=== PATIENT | male | born 1940 | race Caucasian/White ===

== ENCOUNTER 2016-08-18 14:25 | Inpatient (IN) | payer MEDICARE, BC ==
[~2016-08-18] VITALS: Ht 175.3 cm; Wt 81.6 kg
[2016-08-18] MEDS ORDERED: ASPI81TA31 PO (15:49)
[2016-08-18] MEDS ORDERED: MORP1SYR2 IV (15:49)
[2016-08-18] MEDS ORDERED: PANT40TA2 PO (15:49)
[2016-08-18] MEDS ORDERED: BRIM10DR6 LEFTEYE (15:49)
[2016-08-18] MEDS ORDERED: ONDA4VIA30 IVP (15:49)
[2016-08-18] MEDS ORDERED: RIVA20TA PO (15:49)
[2016-08-18] MEDS ORDERED: BLOO-668 IN (15:49)
[2016-08-18] MEDS ORDERED: MAGN400O6 PO (15:49)
[2016-08-18] MEDS ORDERED: ACET-2799 PO (15:49)
[2016-08-18] MEDS ORDERED: TRAZ-144 PO (15:49)
[2016-08-18] MEDS ORDERED: FLUO20CA36 PO (15:49)
[2016-08-18] MEDS ORDERED: MAG355OR18 PO (15:49)
[2016-08-18] MEDS ORDERED: IBUP-1955 PO (15:49)
[2016-08-18] MEDS ORDERED: TIMO5SOL11 LEFTEYE (15:49)
[2016-08-18] MEDS ORDERED: ZOLP5TAB8 PO (15:49)
[2016-08-18] MEDS ORDERED: INSU100V28 SQ (15:49)
[2016-08-18] MEDS ORDERED: BRIM5DRO3 OP (15:49)
[2016-08-18] MEDS ORDERED: AMLO10TA2 PO (15:49)
[2016-08-18] MEDS ORDERED: HYDR25TA4 PO (15:49)
[2016-08-18] MEDS ORDERED: RAMI10CA PO (15:49)
[2016-08-18] MEDS ORDERED: INSU100I19 SQ (15:49)
[2016-08-18] MEDS ORDERED: GABA-534 PO (15:49)
[2016-08-18] MEDS ORDERED: ATOR10TA PO (15:49)
[2016-08-18] MEDS ORDERED: MIRT30TA7 PO (15:49)
[2016-08-18] MEDS ORDERED: OXYCODONE HCL 5 MG TABLET PO PRN (17:30)
[2016-08-18 17:50] VITALS: BP 143/58
--- NOTE | 2016-08-18 19:30 | NUR ---
MED REC COMPLETED. RECEIVED PATIENT IN BED APPEARING IN NAD. LEFT HIP DRESSING CLEAN, DRY, AND INTACT. CSM ADEQUATE TO TOES. COMFORTABLE AT THIS TIME.REFUSING TO WEAR SCD'S AT THIS TIME. EDUCATED ON WHY HE SHOULD BE WEARING THEM, HOWEVER CONTINUES TO REFUSE TO WEAR THEM. INSTRUCTED TO CALL RN FOR ANY NEEDS OR REQUESTS, VERBALIZES GOOD UNDERSTANDING. CALL LIGHT WITHIN REACH AND BED ALARM ON AAT.
[2016-08-18] MEDS ORDERED: ZOLPIDEM 5 MG TABLET PO PRN (20:45)
[2016-08-18] MEDS ORDERED: ONDANSETRON 4 MG/2 ML VIAL IV PRN (20:45)
[2016-08-18] MEDS ORDERED: DEXTROSE 50% 50 ML DISP.SYRIN IV PRN (20:45)
[2016-08-18] MEDS ORDERED: BRIMONIDINE-P 0.1% OPHTH DROP 5 ML DROPS OP SCH (20:45)
[2016-08-18] MEDS ORDERED: MAGNESIUM HYDROXIDE 30 ML LIQUID UDC PO PRN (20:45)
[2016-08-18 20:47] VITALS: BP 140/61
[2016-08-18] MEDS ORDERED: Medication Not On Formulary EA (Mirtazapine 30 MG) PO SCH (21:00)
--- NOTE | 2016-08-18 22:00 | NUR ---
EVENING MEDS GIVEN LATE THEY WERE NOT AVAILABLE FROM PHARMACY UNTIL THEN
[2016-08-18] MEDS: OXYCODONE HCL 5 MG TABLET PO PRN (22:24)
[2016-08-18] MEDS: MIRTAZAPINE 15 MG TABLET PO SCH (22:24)
[2016-08-18] MEDS: TRAZODONE 50 MG TABLET PO SCH (22:24)
[2016-08-18] MEDS: ATORVASTATIN 10 MG TABLET PO SCH (22:24)
[2016-08-18] MEDS: BLOOD SUGAR DIAGNOSTIC 1 EACH STRIP VI SCH (22:30)
[2016-08-18] MEDS: INSULIN REGULAR, HUMAN 300 UNITS/3 ML VIAL SQ PRN (22:33)
[2016-08-19] MEDS: OXYCODONE HCL 5 MG TABLET PO PRN ×4 (03:06→20:33)
--- NOTE | 2016-08-19 06:15 | NUR ---
PATIENT SLEPT WELL WITH OXY PO GIVEN PRIOR TO SLEEP LAST NIGHT. REQUIRED REPEAT PAIN MED ABOUT 0300, WHERE HE SLEPT WELL THEREAFTER.LEFT HIP DRESSING CLEAN, DRY, AND INTACT.CSM ADEQUATE TO TOES. IN NAD AT PRESENT. RESTING IN BETWEEN ROUNDS.CALL LIGHT WITHIN REACH
[2016-08-19] MEDS: PANTOPRAZOLE SODIUM 40 MG TABLET.DR PO SCH ×2 (06:46→08:45)
[2016-08-19] MEDS: BLOOD SUGAR DIAGNOSTIC 1 EACH STRIP VI SCH ×4 (06:50→20:32)
[2016-08-19] MEDS ORDERED: PANTOPRAZOLE SODIUM 40 MG TABLET.DR PO SCH (07:30)
[2016-08-19 07:44] LABS: BASOPHILS % (AUTO) 0.3 % (0.0-2.0); EOSINOPHILS # (AUTO) 0.4 K/uL (0.0-0.7); EOSINOPHILS % (AUTO) 4.7 % (0.0-7.0); HEMOGLOBIN 8.7 G/DL (14.0-18.0); LYMPHOCYTES # (AUTO) 0.8 K/UL (0.8-4.8); MEAN CORPUSCULAR HEMOGLOBIN 28.4 UUG (27.0-31.0); MEAN CORPUSCULAR HGB CONC 34 g/dL (32.0-37.0); MEAN CORPUSCULAR VOLUME 84.9 FL (82.0-92.0); MONOCYTES # (AUTO) 0.9 K/UL (0.1-1.30); MONOCYTES % (AUTO) 8.9 % (0.0-11.0); NEUTROPHILS # (AUTO) 7.5 K/UL (1.8-8.9); NEUTROPHILS % (AUTO) 78.1 % (38.5-71.5); PLATELET COUNT (AUTO) 189 K/UL (150-450); RED BLOOD CELL COUNT(AUTO) 3.06 MIL/UL (4.7-6.1); WHITE BLOOD COUNT (AUTO) 9.6 K/UL (4.0-11.2)
[2016-08-19 08:19] LABS: CARBON DIOXIDE 30 mmol/L (21-32); CHLORIDE 99 mmol/L (98-107); CHOLESTEROL 99 mg/dL (<200); CREATININE 1.1 mg/dL (0.6-1.3); GLUCOSE 114 mg/dL (74-106); HDL CHOLESTEROL 30 mg/dL (40-60); PHOSPHOROUS 3.4 mg/dL (2.5-4.9); POTASSIUM 3.5 mmol/L (3.5-5.1); TRIGLYCERIDES 66 MG/DL (30-150); UREA NITROGEN, BLOOD 18 mg/dL (7-18)
[2016-08-19 08:21] VITALS: BP 165/69
[2016-08-19 08:22] VITALS: BP 146/80
[2016-08-19] MEDS: ASPIRIN 81 MG TAB.CHEW PO SCH (08:45)
[2016-08-19] MEDS: MAG HYDROX/AL HYDROX/SIMETH 30 ML LIQUID UDC PO PRN ×2 (08:46→15:22)
[2016-08-19] MEDS: GABAPENTIN 300 MG CAPSULE PO SCH ×3 (08:46→17:43)
[2016-08-19] MEDS: AMLODIPINE 10 MG TABLET PO SCH (08:46)
[2016-08-19] MEDS: FLUOXETINE HCL 20 MG CAPSULE PO SCH ×2 (08:46→17:44)
[2016-08-19] MEDS: RAMIPRIL 5 MG CAPSULE PO SCH (08:47)
[2016-08-19] MEDS: HYDROCHLOROTHIAZIDE 25 MG TABLET PO SCH (08:47)
[2016-08-19] MEDS ORDERED: BRIMONIDINE 0.2% OPHT DROP 10 ML BOTTLE LEFTEYE SCH (09:00)
[2016-08-19] MEDS ORDERED: TIMOLOL MALEATE XE 0.5% OPHT 5 ML BOTTLE LEFTEYE SCH (09:00)
[2016-08-19] MEDS ORDERED: BISACODYL 10 MG SUPP.RECT RC PRN (09:15)
[2016-08-19 09:31] LABS: EOSINOPHILS % (MANUAL) 2 % (0-8); LYMPHOCYTES % (MANUAL) 7 % (20-40); MONOCYTES % (MANUAL) 9 % (2-10); NEUTROPHILS % (MANUAL) 82 % (42-75)
[2016-08-19] MEDS ORDERED: BRIM5DRO2 OP (11:21)
[2016-08-19] MEDS: TIMOLOL MALEATE 0.5% OPHT DROP 5 ML BOTTLE LEFTEYE SCH ×2 (11:30→20:35)
[2016-08-19] MEDS ORDERED: HOME MED MISCELLANEOUS LEFTEYE SCH (11:30)
[2016-08-19] MEDS: BRIMONIDINE 0.2% OPHT DROP 10 ML BOTTLE LEFTEYE SCH ×2 (11:30→20:34)
[2016-08-19] MEDS: INSULIN REGULAR, HUMAN 300 UNIT/3 ML VIAL SQ PRN (12:05)
[2016-08-19] MEDS: INSULIN DETEMIR 300 UNIT/3 ML CARTRIDGE SQ SCH (12:11)
[2016-08-19] MEDS: MORPHINE SULFATE 2 MG/1 ML DISP.SYRIN IM PRN (12:56)
--- NOTE | 2016-08-19 17:07 | NUR ---
DAILY NOTE EVENING MR=[id number] HE REFUSED INSULIN AT THIS TIME WANTS TO WAIT FOR THE HS ACCU CHECK TO SEE IF THE LEVEMIR WILL BRING IT DOWN. BS FOR THE AFTERNOON 362 COVERED WITH 20U OF REGULAR INSULIN THEN DOWN TO 293 AFTER 2HRS AND NOW 206 FOR THE DINNER READING. HE IS NOT HAVING DINNER NOW SAYS HE WILL EAT LATER WHEN HIS FRIEND COMES AND HE WILL TAKE COVERAGE IF NEEDED FOR THE HS ACCUCHECK. A/O IN NO ACUTE DISTRESS
[2016-08-19] MEDS: RIVAROXABAN 10 MG TABLET PO SCH (17:43)
--- NOTE | 2016-08-19 18:10 | NUR ---
END OF SHIFT IN BED RESTING QUIETLY. IN NO ACUTE DISTRESS. MEDICATED FOR PAIN ORDERED. PERICARE GIVEN DIAPER CHANGED. REPOSITIONED IN BED. LG BM TODAY
[2016-08-19 20:00] VITALS: BP 145/65
[2016-08-19] MEDS: MIRTAZAPINE 15 MG TABLET PO SCH (20:33)
[2016-08-19] MEDS: ATORVASTATIN 10 MG TABLET PO SCH (20:33)
[2016-08-19] MEDS: TRAZODONE 50 MG TABLET PO SCH (20:33)
[2016-08-20] MEDS: OXYCODONE HCL 5 MG TABLET PO PRN ×4 (01:25→22:50)
[2016-08-20] MEDS: MORPHINE SULFATE 2 MG/1 ML DISP.SYRIN IM PRN (03:00)
[2016-08-20] MEDS: BLOOD SUGAR DIAGNOSTIC 1 EACH STRIP VI SCH ×4 (06:39→20:32)
--- NOTE | 2016-08-20 06:54 | NUR ---
Patient alert and able to let needs known, slept on and off throughout the day. Had c/o pain and medication was administered as needed with relief. Patient maintained clean and dry throughout the night, call light within reach. No signs of respiratory distress, continues on O2 2 LPM. Will continue to monitor.
[2016-08-20 08:11] LABS: BASOPHILS % (AUTO) 0.2 % (0.0-2.0); EOSINOPHILS # (AUTO) 0.1 K/uL (0.0-0.7); EOSINOPHILS % (AUTO) 1.1 % (0.0-7.0); HEMATOCRIT 26.4 % (40-50); HEMOGLOBIN 8.9 G/DL (14.0-18.0); LYMPHOCYTES # (AUTO) 0.7 K/UL (0.8-4.8); LYMPHOCYTES % (AUTO) 5.4 % (20.5-51.5); MEAN CORPUSCULAR HEMOGLOBIN 28.2 UUG (27.0-31.0); MEAN CORPUSCULAR HGB CONC 34 g/dL (32.0-37.0); MEAN CORPUSCULAR VOLUME 84.1 FL (82.0-92.0); MONOCYTES % (AUTO) 7.9 % (0.0-11.0); NEUTROPHILS # (AUTO) 10.4 K/UL (1.8-8.9); NEUTROPHILS % (AUTO) 85.4 % (38.5-71.5); RED BLOOD CELL COUNT(AUTO) 3.14 MIL/UL (4.7-6.1)
[2016-08-20 08:15] VITALS: BP 156/67
[2016-08-20 08:21] LABS: PLATELET COUNT (AUTO) 247 K/UL (150-450); WHITE BLOOD COUNT (AUTO) 12.2 K/UL (4.0-11.2)
[2016-08-20] MEDS: RAMIPRIL 5 MG CAPSULE PO SCH (08:30)
[2016-08-20] MEDS: GABAPENTIN 300 MG CAPSULE PO SCH ×3 (08:30→17:00)
[2016-08-20] MEDS: HYDROCHLOROTHIAZIDE 25 MG TABLET PO SCH (08:30)
[2016-08-20] MEDS: ASPIRIN 81 MG TAB.CHEW PO SCH (08:30)
[2016-08-20] MEDS: FLUOXETINE HCL 20 MG CAPSULE PO SCH ×2 (08:30→17:00)
[2016-08-20] MEDS: AMLODIPINE 10 MG TABLET PO SCH (08:31)
[2016-08-20] MEDS: BRIMONIDINE 0.2% OPHT DROP 10 ML BOTTLE LEFTEYE SCH ×2 (08:33→20:32)
[2016-08-20] MEDS: TIMOLOL MALEATE 0.5% OPHT DROP 5 ML BOTTLE LEFTEYE SCH ×2 (08:34→20:33)
[2016-08-20] MEDS: INSULIN DETEMIR 300 UNIT/3 ML CARTRIDGE SQ SCH (08:45)
--- NOTE | 2016-08-20 08:55 | NUR ---
Patient working with physical therapy. Requested pain pill for pain 07/31. Admin as per PRN orders. WIll continue to monitor.
--- NOTE | 2016-08-20 10:00 | NUR ---
Removed old dressing from left forearm. Large bruise with skin tear noted. Cleansed with NS, patted dry and applied large bandaid. Patient states obtained when fell at home priior to being admitted for surgery. No picture in chart. Picture taken and placed in chart.
--- NOTE | 2016-08-20 11:10 | NUR ---
Patient had large soft, brown bowel movement. MULTICULTURAL SERVICES LIBRARIAN X2 cleansed and changed all linens.
[2016-08-20] MEDS: INSULIN REGULAR, HUMAN 300 UNIT/3 ML VIAL SQ PRN ×2 (11:59→16:43)
--- NOTE | 2016-08-20 17:45 | NUR ---
Receied order to collect urine culture. Placed condom cath but fell off. Cleanse patient, changed all linens. Placed penis in urinal, secured with diaper. WIll continue to monitor.
[2016-08-20] MEDS: RIVAROXABAN 10 MG TABLET PO SCH (17:51)
--- NOTE | 2016-08-20 18:41 | NUR ---
Checked urinal, patient has not voided. Will continue to monitor and endorse to assistant shift supervisor nurse accordingly.
[2016-08-20] MEDS: MIRTAZAPINE 15 MG TABLET PO SCH (20:31)
[2016-08-20] MEDS: TRAZODONE 50 MG TABLET PO SCH (20:31)
[2016-08-20] MEDS: ATORVASTATIN 10 MG TABLET PO SCH (20:31)
[2016-08-20 20:43] LABS: *BILIRUBIN,URIN NEGATIVE (NEGATIVE); *BLOOD, URINE NEGATIVE (NEGATIVE); *CLARITY,URINE CLEAR (CLEAR); *COLOR,URINE YELLOW (YELLOW); *KETONES,URINE NEGATIVE (NEGATIVE); *PROTEIN,URINE TRACE (NEGATIVE); *UROBILINOGEN,URINE 0.2 E.U./dl (NORMAL); LEUKOCYTE ESTERASE ,URINE NEGATIVE (NEGATIVE); NITRITE, URINE NEGATIVE (NEGATIVE); UGLUCOSE TRACE (NEGATIVE)
[2016-08-20 20:54] LABS: MUCUS,URINE FEW /LPF (0-FEW); SQUAMOUS EPITHELIAL CELL,UR FEW /HPF (NONE SEEN); WBC,URINE 0-3 /HPF (0-3)
[2016-08-21] MEDS: OXYCODONE HCL 5 MG TABLET PO PRN ×3 (05:44→15:27)
[2016-08-21] MEDS: BLOOD SUGAR DIAGNOSTIC 1 EACH STRIP VI SCH ×4 (06:27→21:45)
[2016-08-21] MEDS: PANTOPRAZOLE SODIUM 40 MG TABLET.DR PO SCH (06:28)
--- NOTE | 2016-08-21 06:36 | NUR ---
Patient alert and oriented and verbally able to let needs known. Slept intermittently throughout the night, no signs of respiratory distress noted, continues on O2 at 2 L via N/C. Voided well in diaper since the patient is incontinent, also had a BM today. Pain medication was administered this morning per patient request. He does have call light within reach. Will continue to monitor.
[2016-08-21 08:00] VITALS: BP 150/64
[2016-08-21 08:18] LABS: CARBON DIOXIDE 32 mmol/L (21-32); CHLORIDE 98 mmol/L (98-107); CREATININE 1.3 mg/dL (0.6-1.3); GLUCOSE 80 mg/dL (74-106); MAGNESIUM 2.5 mg/dL (1.8-2.4); POTASSIUM 3.4 mmol/L (3.5-5.1); UREA NITROGEN, BLOOD 30 mg/dL (7-18)
[2016-08-21 08:26] LABS: BASOPHILS % (AUTO) 0.2 % (0.0-2.0); EOSINOPHILS # (AUTO) 0.1 K/uL (0.0-0.7); EOSINOPHILS % (AUTO) 0.9 % (0.0-7.0); HEMOGLOBIN 9.5 G/DL (14.0-18.0); LYMPHOCYTES # (AUTO) 0.7 K/UL (0.8-4.8); MEAN CORPUSCULAR HEMOGLOBIN 28.3 UUG (27.0-31.0); MEAN CORPUSCULAR HGB CONC 34 g/dL (32.0-37.0); MEAN CORPUSCULAR VOLUME 83.8 FL (82.0-92.0); MONOCYTES # (AUTO) 1.1 K/UL (0.1-1.30); MONOCYTES % (AUTO) 8.8 % (0.0-11.0); NEUTROPHILS # (AUTO) 10.4 K/UL (1.8-8.9); NEUTROPHILS % (AUTO) 84.1 % (38.5-71.5); PLATELET COUNT (AUTO) 277 K/UL (150-450); RED BLOOD CELL COUNT(AUTO) 3.34 MIL/UL (4.7-6.1); WHITE BLOOD COUNT (AUTO) 12.3 K/UL (4.0-11.2)
[2016-08-21] MEDS: GABAPENTIN 300 MG CAPSULE PO SCH ×3 (09:02→17:47)
[2016-08-21] MEDS: FLUOXETINE HCL 20 MG CAPSULE PO SCH ×2 (09:02→17:47)
[2016-08-21] MEDS: ASPIRIN 81 MG TAB.CHEW PO SCH (09:04)
[2016-08-21] MEDS: BRIMONIDINE 0.2% OPHT DROP 10 ML BOTTLE LEFTEYE SCH ×2 (09:05→21:07)
[2016-08-21] MEDS: TIMOLOL MALEATE 0.5% OPHT DROP 5 ML BOTTLE LEFTEYE SCH ×2 (09:06→21:10)
[2016-08-21] MEDS: RAMIPRIL 5 MG CAPSULE PO SCH (09:25)
[2016-08-21] MEDS: AMLODIPINE 10 MG TABLET PO SCH (09:25)
[2016-08-21] MEDS: HYDROCHLOROTHIAZIDE 25 MG TABLET PO SCH (09:26)
[2016-08-21] MEDS: INSULIN DETEMIR 300 UNIT/3 ML CARTRIDGE SQ SCH (09:34)
[2016-08-21] MEDS: INSULIN REGULAR, HUMAN 300 UNIT/3 ML VIAL SQ PRN (12:58)
[2016-08-21] MEDS: BISACODYL 5 MG TABLET.DR PO PRN (15:23)
[2016-08-21] MEDS ORDERED: POTASSIUM CHLORIDE 20 MEQ TAB.PRT.SR PO ONE (15:45)
[2016-08-21] MEDS: RIVAROXABAN 10 MG TABLET PO SCH (17:38)
--- NOTE | 2016-08-21 17:40 | NUR ---
Pt. blood sugar 54. Jp Villa NP, notified. Apple juice given. Pt. states feeling better. Bs will be rechecked in 30 min.
[2016-08-21] MEDS: Z GUARD REMEDY PASTE 57 GM TUBE TOP PRN (18:08)
[2016-08-21] MEDS: MORPHINE SULFATE 2 MG/1 ML DISP.SYRIN IM PRN (18:22)
[2016-08-21] MEDS: LEVOFLOXACIN 750MG/D5W 750 MG in PREMIXED 1 EACH IV SCH (20:03)
[2016-08-21] MEDS: MIRTAZAPINE 15 MG TABLET PO SCH (21:06)
[2016-08-21] MEDS: TRAZODONE 50 MG TABLET PO SCH (21:06)
[2016-08-21] MEDS: ATORVASTATIN 10 MG TABLET PO SCH (21:06)
[2016-08-21 22:00] VITALS: BP 144/58
[2016-08-22] MEDS: MORPHINE SULFATE 2 MG/1 ML DISP.SYRIN IM PRN ×3 (00:49→21:08)
[2016-08-22] MEDS: OXYCODONE HCL 5 MG TABLET PO PRN ×3 (03:32→17:48)
[2016-08-22] MEDS: PANTOPRAZOLE SODIUM 40 MG TABLET.DR PO SCH (06:34)
--- NOTE | 2016-08-22 07:30 | NUR ---
PT RECEIVED IN BED AWAKE.PT IS AXOX3.NO C/O PAIN NOTED.V/S ARE STABLE.BREAKFAST SERVED.
[2016-08-22] MEDS: BLOOD SUGAR DIAGNOSTIC 1 EACH STRIP VI SCH ×4 (08:03→21:00)
[2016-08-22] MEDS: HYDROCHLOROTHIAZIDE 25 MG TABLET PO SCH (08:21)
[2016-08-22] MEDS: GABAPENTIN 300 MG CAPSULE PO SCH ×3 (08:21→16:08)
[2016-08-22] MEDS: AMLODIPINE 10 MG TABLET PO SCH (08:21)
[2016-08-22] MEDS: FLUOXETINE HCL 20 MG CAPSULE PO SCH ×2 (08:21→16:08)
[2016-08-22] MEDS: RAMIPRIL 5 MG CAPSULE PO SCH (08:22)
[2016-08-22] MEDS: BRIMONIDINE 0.2% OPHT DROP 10 ML BOTTLE LEFTEYE SCH ×2 (08:22→21:09)
[2016-08-22] MEDS: ASPIRIN 81 MG TAB.CHEW PO SCH (08:22)
[2016-08-22] MEDS: TIMOLOL MALEATE 0.5% OPHT DROP 5 ML BOTTLE LEFTEYE SCH ×2 (08:23→21:08)
[2016-08-22 08:33] LABS: CARBON DIOXIDE 31 mmol/L (21-32); CHLORIDE 93 mmol/L (98-107); GLUCOSE 101 mg/dL (74-106); POTASSIUM 3.3 mmol/L (3.5-5.1); UREA NITROGEN, BLOOD 27 mg/dL (7-18)
[2016-08-22 08:36] VITALS: BP 144/58
[2016-08-22 08:37] VITALS: BP 153/71
[2016-08-22] MEDS: INSULIN DETEMIR 300 UNIT/3 ML CARTRIDGE SQ SCH (08:47)
[2016-08-22 09:07] LABS: BASOPHILS % (AUTO) 0.3 % (0.0-2.0); EOSINOPHILS # (AUTO) 0.4 K/uL (0.0-0.7); EOSINOPHILS % (AUTO) 3.1 % (0.0-7.0); HEMATOCRIT 27.3 % (40-50); HEMOGLOBIN 9.3 G/DL (14.0-18.0); LYMPHOCYTES # (AUTO) 0.8 K/UL (0.8-4.8); LYMPHOCYTES % (AUTO) 6.3 % (20.5-51.5); MEAN CORPUSCULAR HEMOGLOBIN 28.7 UUG (27.0-31.0); MEAN CORPUSCULAR HGB CONC 34 g/dL (32.0-37.0); MEAN CORPUSCULAR VOLUME 84.2 FL (82.0-92.0); MONOCYTES # (AUTO) 1.2 K/UL (0.1-1.30); MONOCYTES % (AUTO) 10.2 % (0.0-11.0); NEUTROPHILS # (AUTO) 9.8 K/UL (1.8-8.9); NEUTROPHILS % (AUTO) 80.1 % (38.5-71.5); PLATELET COUNT (AUTO) 267 K/UL (150-450); RED BLOOD CELL COUNT(AUTO) 3.25 MIL/UL (4.7-6.1); WHITE BLOOD COUNT (AUTO) 12.2 K/UL (4.0-11.2)
--- NOTE | 2016-08-22 11:15 | NUR ---
PT BLOOD SUGAR IS 386 MD MADE AWARE.
[2016-08-22] MEDS: INSULIN REGULAR, HUMAN 300 UNIT/3 ML VIAL SQ PRN ×2 (11:18→16:15)
--- NOTE | 2016-08-22 11:38 | NUR ---
PT C/O PAIN ,PAIN MEDS GIVEN PER MD ORDERS.
--- NOTE | 2016-08-22 13:23 | NUR ---
PT IS RESTING IN HIS BED ,OT THERAPIST WORKING WITH THE PT.
[2016-08-22] MEDS ORDERED: IV NORMAL SALINE 500 ML IV ONE (14:15)
[2016-08-22] MEDS ORDERED: POTASSIUM CHLORIDE 20 MEQ TAB.PRT.SR PO ONE (14:15)
[2016-08-22] MEDS: LEVOFLOXACIN 750MG/D5W 750 MG in PREMIXED 1 EACH IV SCH (16:26)
[2016-08-22] MEDS: RIVAROXABAN 10 MG TABLET PO SCH (17:05)
[2016-08-22 20:00] VITALS: BP 144/63
[2016-08-22] MEDS: TRAZODONE 50 MG TABLET PO SCH (21:09)
[2016-08-22] MEDS: MIRTAZAPINE 15 MG TABLET PO SCH (21:10)
[2016-08-22] MEDS: ATORVASTATIN 10 MG TABLET PO SCH (21:10)
[2016-08-22 21:32] VITALS: BP 144/63
[2016-08-23] MEDS: OXYCODONE HCL 5 MG TABLET PO PRN ×5 (01:49→21:12)
[2016-08-23] MEDS: MORPHINE SULFATE 2 MG/1 ML DISP.SYRIN IM PRN (03:42)
[2016-08-23] MEDS: BLOOD SUGAR DIAGNOSTIC 1 EACH STRIP VI SCH ×4 (06:28→21:52)
[2016-08-23] MEDS: PANTOPRAZOLE SODIUM 40 MG TABLET.DR PO SCH (06:29)
--- NOTE | 2016-08-23 07:20 | NUR ---
PT RECEIVED IN BED AWAKE.PT STILL C/O PAIN ON HIS LEFT HIP.PT IS AXOX4.MORNING ASSESSMENT DONE.
[2016-08-23] MEDS: GABAPENTIN 300 MG CAPSULE PO SCH ×3 (08:09→16:12)
[2016-08-23] MEDS: AMLODIPINE 10 MG TABLET PO SCH (08:10)
[2016-08-23] MEDS: RAMIPRIL 5 MG CAPSULE PO SCH (08:10)
[2016-08-23] MEDS: ASPIRIN 81 MG TAB.CHEW PO SCH (08:10)
[2016-08-23] MEDS: FLUOXETINE HCL 20 MG CAPSULE PO SCH ×2 (08:10→16:12)
[2016-08-23] MEDS: HYDROCHLOROTHIAZIDE 25 MG TABLET PO SCH (08:10)
[2016-08-23 08:11] VITALS: BP 109/67
[2016-08-23] MEDS: BRIMONIDINE 0.2% OPHT DROP 10 ML BOTTLE LEFTEYE SCH ×2 (08:11→21:13)
[2016-08-23] MEDS: TIMOLOL MALEATE 0.5% OPHT DROP 5 ML BOTTLE LEFTEYE SCH ×2 (08:11→21:13)
[2016-08-23] MEDS: INSULIN DETEMIR 300 UNIT/3 ML CARTRIDGE SQ SCH (08:15)
[2016-08-23 08:39] LABS: CARBON DIOXIDE 31 mmol/L (21-32); CHLORIDE 94 mmol/L (98-107); CREATININE 1.2 mg/dL (0.6-1.3); GLUCOSE 112 mg/dL (74-106); MAGNESIUM 2.3 mg/dL (1.8-2.4); POTASSIUM 4.4 mmol/L (3.5-5.1); UREA NITROGEN, BLOOD 24 mg/dL (7-18)
--- NOTE | 2016-08-23 08:52 | NUR ---
PT C/O PAIN IN HIS LEFT HIP AT THE RATE OF 8 OXYCODONE 10 MG PO GIVEN PER MD ORDERS.
[2016-08-23 09:18] LABS: EOSINOPHILS # (AUTO) 0.5 K/uL (0.0-0.7); EOSINOPHILS % (AUTO) 4.2 % (0.0-7.0); HEMATOCRIT 27.7 % (40-50); HEMOGLOBIN 9.4 G/DL (14.0-18.0); LYMPHOCYTES # (AUTO) 0.9 K/UL (0.8-4.8); LYMPHOCYTES % (AUTO) 7.2 % (20.5-51.5); MEAN CORPUSCULAR HEMOGLOBIN 28.1 UUG (27.0-31.0); MEAN CORPUSCULAR HGB CONC 34 g/dL (32.0-37.0); MEAN CORPUSCULAR VOLUME 82.8 FL (82.0-92.0); MONOCYTES # (AUTO) 1.1 K/UL (0.1-1.30); NEUTROPHILS # (AUTO) 10.1 K/UL (1.8-8.9); NEUTROPHILS % (AUTO) 79.6 % (38.5-71.5); PLATELET COUNT (AUTO) 318 K/UL (150-450); RED BLOOD CELL COUNT(AUTO) 3.34 MIL/UL (4.7-6.1); WHITE BLOOD COUNT (AUTO) 12.6 K/UL (4.0-11.2)
[2016-08-23] MEDS: INSULIN REGULAR, HUMAN 300 UNIT/3 ML VIAL SQ PRN ×2 (11:18→15:46)
[2016-08-23] MEDS: RIVAROXABAN 10 MG TABLET PO SCH (17:12)
[2016-08-23] MEDS: LEVOFLOXACIN 750MG/D5W 750 MG in PREMIXED 1 EACH IV SCH (17:22)
--- NOTE | 2016-08-23 17:45 | NUR ---
END OF SHIFT IN BED RESTING QUIETLY. IN NO ACUTE DISTRESS. MEDICATED FOR PAIN GIVEN. PERICARE GIVEN DIAPER CHANGED. REPOSITIONED IN BED.
[2016-08-23 20:00] VITALS: BP 141/65
[2016-08-23 21:02] VITALS: BP 146/65
[2016-08-23] MEDS: MIRTAZAPINE 15 MG TABLET PO SCH (21:12)
[2016-08-23] MEDS: TRAZODONE 50 MG TABLET PO SCH (21:12)
[2016-08-23] MEDS: ATORVASTATIN 10 MG TABLET PO SCH (21:45)
--- NOTE | 2016-08-23 21:53 | NUR ---
RN NOTES: 21:06 BLOOD SUGAR IS 49 MG/DL. APPLE JUICE,PUDDING GIVEN TO THE PATIENT. 21:20 BLOOD SUGAR IS 68 MG/DL. APPLE JUICE AND CRACKERS ARE GIVEN TO PATIENT .WILL CONTINUE TO MONITOR 21:39 BLOOD SUGAR IS 92 MG/DL. WILL CONTINUE TO FOLLOW UP.
[2016-08-24] MEDS: OXYCODONE HCL 5 MG TABLET PO PRN ×3 (04:53→20:54)
[2016-08-24] MEDS: PANTOPRAZOLE SODIUM 40 MG TABLET.DR PO SCH (06:14)
[2016-08-24 07:13] LABS: BASOPHILS % (AUTO) 0.2 % (0.0-2.0); EOSINOPHILS # (AUTO) 0.5 K/uL (0.0-0.7); HEMATOCRIT 27.6 % (40-50); HEMOGLOBIN 9.4 G/DL (14.0-18.0); LYMPHOCYTES # (AUTO) 0.7 K/UL (0.8-4.8); LYMPHOCYTES % (AUTO) 5.7 % (20.5-51.5); MEAN CORPUSCULAR HEMOGLOBIN 28.2 UUG (27.0-31.0); MEAN CORPUSCULAR HGB CONC 34 g/dL (32.0-37.0); MEAN CORPUSCULAR VOLUME 82.9 FL (82.0-92.0); MONOCYTES # (AUTO) 1.3 K/UL (0.1-1.30); NEUTROPHILS # (AUTO) 10.4 K/UL (1.8-8.9); NEUTROPHILS % (AUTO) 80.1 % (38.5-71.5); PLATELET COUNT (AUTO) 318 K/UL (150-450); RED BLOOD CELL COUNT(AUTO) 3.33 MIL/UL (4.7-6.1); WHITE BLOOD COUNT (AUTO) 12.9 K/UL (4.0-11.2)
[2016-08-24] MEDS: BLOOD SUGAR DIAGNOSTIC 1 EACH STRIP VI SCH ×4 (07:20→20:57)
[2016-08-24] MEDS: INSULIN REGULAR, HUMAN 300 UNIT/3 ML VIAL SQ PRN ×3 (07:41→16:11)
[2016-08-24 07:43] LABS: CARBON DIOXIDE 32 mmol/L (21-32); CHLORIDE 91 mmol/L (98-107); CREATININE 1.2 mg/dL (0.6-1.3); GLUCOSE 175 mg/dL (74-106); MAGNESIUM 2.2 mg/dL (1.8-2.4); PHOSPHOROUS 3.4 mg/dL (2.5-4.9); POTASSIUM 4.3 mmol/L (3.5-5.1); UREA NITROGEN, BLOOD 24 mg/dL (7-18); URIC ACID 4.9 mg/dL (3.5-7.2)
--- NOTE | 2016-08-24 07:56 | NUR ---
Patient alert and oriented and verbally able to let needs know no signs of respiratory distress noted, continues on O2 at 2 L via N/C. He does have call light within reach. Will continue to monitor.breakfast served
[2016-08-24 08:00] VITALS: BP 159/69
[2016-08-24] MEDS: INSULIN DETEMIR 300 UNIT/3 ML CARTRIDGE SQ SCH (08:07)
[2016-08-24] MEDS: BRIMONIDINE 0.2% OPHT DROP 10 ML BOTTLE LEFTEYE SCH ×2 (08:08→20:55)
[2016-08-24] MEDS: TIMOLOL MALEATE 0.5% OPHT DROP 5 ML BOTTLE LEFTEYE SCH ×2 (08:09→21:00)
[2016-08-24] MEDS: FLUOXETINE HCL 20 MG CAPSULE PO SCH ×2 (08:09→16:09)
[2016-08-24] MEDS: AMLODIPINE 10 MG TABLET PO SCH (08:09)
[2016-08-24] MEDS: ASPIRIN 81 MG TAB.CHEW PO SCH (08:09)
[2016-08-24] MEDS: RAMIPRIL 5 MG CAPSULE PO SCH (08:10)
[2016-08-24] MEDS: GABAPENTIN 300 MG CAPSULE PO SCH ×3 (08:10→16:09)
[2016-08-24 08:49] LABS: THYROID STIMULATING HORMONE 1.157 mIU/mL (0.358-3.740)
--- NOTE | 2016-08-24 08:57 | NUR ---
IN AND OUT CATHETER DID PER MD ORDERS FOR URINE SAMPLE,PT PEE 1750 ML URINE.MD MADE AWARE.
--- NOTE | 2016-08-24 09:00 | NUR ---
PT SEEN BY DR LOWE
--- NOTE | 2016-08-24 12:38 | NUR ---
PT SEEN BY DR MORALES NEW ORDERS RECEIVED NOTED AND CARRIED OUT.
[2016-08-24 12:43] LABS: IRON, SERUM 40 ug/dL (50-175)
[2016-08-24] MEDS: MORPHINE SULFATE 2 MG/1 ML DISP.SYRIN IM PRN (13:18)
--- NOTE | 2016-08-24 14:30 | NUR ---
PT WAS UNABLE TO URINATE ,BLADDER SCAN DONE ,PT RETAINING 999 ML URINE , MADE AWARE.NEW ORDERS RECEIVED AND CARRIED OUT,
[2016-08-24] MEDS ORDERED: TAMSULOSIN HCL 0.4 MG CAP.SR.24H PO ONE (15:00)
--- NOTE | 2016-08-24 15:00 | NUR ---
PER MD ORDERS FOLLY CATHETER INSERTED.
[2016-08-24] MEDS: MORPHINE SULFATE SR 15 MG TABLET.SA PO SCH (15:50)
[2016-08-24] MEDS: REPAGLINIDE 1 MG TABLET PO SCH (16:12)
[2016-08-24] MEDS: LEVOFLOXACIN 750MG/D5W 750 MG in PREMIXED 1 EACH IV SCH (16:38)
[2016-08-24] MEDS: RIVAROXABAN 10 MG TABLET PO SCH (17:06)
[2016-08-24 20:00] VITALS: BP 125/52
[2016-08-24] MEDS: INSULIN REGULAR, HUMAN 300 UNITS/3 ML VIAL SQ PRN (20:52)
[2016-08-24] MEDS: MIRTAZAPINE 15 MG TABLET PO SCH (20:54)
[2016-08-24] MEDS: TRAZODONE 50 MG TABLET PO SCH (20:54)
[2016-08-24] MEDS: TAMSULOSIN HCL 0.4 MG CAP.SR.24H PO SCH (20:54)
[2016-08-24] MEDS: ATORVASTATIN 10 MG TABLET PO SCH (20:55)
[2016-08-25] MEDS: OXYCODONE HCL 5 MG TABLET PO PRN ×4 (01:06→18:16)
[2016-08-25] MEDS: BLOOD SUGAR DIAGNOSTIC 1 EACH STRIP VI SCH ×4 (06:31→21:48)
[2016-08-25] MEDS: PANTOPRAZOLE SODIUM 40 MG TABLET.DR PO SCH (06:31)
[2016-08-25 08:09] LABS: BASOPHILS % (AUTO) 0.3 % (0.0-2.0); EOSINOPHILS # (AUTO) 0.4 K/uL (0.0-0.7); EOSINOPHILS % (AUTO) 2.9 % (0.0-7.0); HEMATOCRIT 27.1 % (40-50); HEMOGLOBIN 9.4 G/DL (14.0-18.0); LYMPHOCYTES # (AUTO) 0.8 K/UL (0.8-4.8); MEAN CORPUSCULAR HEMOGLOBIN 28.6 UUG (27.0-31.0); MEAN CORPUSCULAR HGB CONC 35 g/dL (32.0-37.0); MEAN CORPUSCULAR VOLUME 82.8 FL (82.0-92.0); MONOCYTES # (AUTO) 0.9 K/UL (0.1-1.30); MONOCYTES % (AUTO) 7.7 % (0.0-11.0); NEUTROPHILS % (AUTO) 82.1 % (38.5-71.5); PLATELET COUNT (AUTO) 292 K/UL (150-450); RED BLOOD CELL COUNT(AUTO) 3.27 MIL/UL (4.7-6.1); WHITE BLOOD COUNT (AUTO) 12.1 K/UL (4.0-11.2)
[2016-08-25] MEDS: GABAPENTIN 300 MG CAPSULE PO SCH ×3 (08:13→16:36)
[2016-08-25] MEDS: FLUOXETINE HCL 20 MG CAPSULE PO SCH ×2 (08:13→16:36)
[2016-08-25] MEDS: ASPIRIN 81 MG TAB.CHEW PO SCH (08:13)
[2016-08-25] MEDS: REPAGLINIDE 1 MG TABLET PO SCH ×3 (08:13→16:36)
[2016-08-25] MEDS: RAMIPRIL 5 MG CAPSULE PO SCH (08:13)
[2016-08-25] MEDS: MORPHINE SULFATE SR 15 MG TABLET.SA PO SCH (08:13)
[2016-08-25] MEDS: AMLODIPINE 10 MG TABLET PO SCH (08:14)
[2016-08-25] MEDS: BRIMONIDINE 0.2% OPHT DROP 10 ML BOTTLE LEFTEYE SCH ×2 (08:14→20:32)
[2016-08-25] MEDS: TIMOLOL MALEATE 0.5% OPHT DROP 5 ML BOTTLE LEFTEYE SCH ×2 (08:15→20:33)
[2016-08-25 08:17] LABS: ALANINE AMINOTRANSFERASE 16 U/L (16-63); ALKALINE PHOSPHATASE 83 U/L (50-136); ASPARTATE AMINOTRANSFERASE 15 U/L (15-37); BILIRUBIN,TOTAL 0.6 mg/dL (0.2-1.0); CARBON DIOXIDE 30 mmol/L (21-32); CHLORIDE 94 mmol/L (98-107); CREATININE 1.1 mg/dL (0.6-1.3); GLUCOSE 191 mg/dL (74-106); MAGNESIUM 2.1 mg/dL (1.8-2.4); PHOSPHOROUS 3.1 mg/dL (2.5-4.9); POTASSIUM 4.8 mmol/L (3.5-5.1); TOTAL PROTEIN, SERUM 5.5 g/dL (6.4-8.2); UREA NITROGEN, BLOOD 20 mg/dL (7-18)
[2016-08-25] MEDS: INSULIN DETEMIR 300 UNIT/3 ML CARTRIDGE SQ SCH (08:17)
[2016-08-25] MEDS: INSULIN REGULAR, HUMAN 300 UNIT/3 ML VIAL SQ PRN ×2 (08:19→11:42)
[2016-08-25 08:39] VITALS: BP 154/65
[2016-08-25 10:28] LABS: BAND % (MANUAL) 2 % (0-10); EOSINOPHILS % (MANUAL) 3 % (0-8); LYMPHOCYTES % (MANUAL) 7 % (20-40); MONOCYTES % (MANUAL) 7 % (2-10); NEUTROPHILS % (MANUAL) 81 % (42-75)
[2016-08-25] MEDS: MORPHINE SULFATE 2 MG/1 ML DISP.SYRIN IM PRN ×2 (11:34→16:25)
--- NOTE | 2016-08-25 13:01 | NUR ---
Staff Auditor SW met with patient at [facility] to assess pt needs and provide support. The patient is a 76 year old male admitted for left hip fracture. The patient was laying in his bed during the assessment. He was calm and cooperative during the interview. The patient's mood was somewhat depressed and and he stated that he is frustrated and "feeling a little down". Per pt, he lives at home with his business solution analyst Corina. He has been living there for 30 years along with his who in March 2016. The patient acknowledged his condition and the need for intervention. The patient stated that she has strong social support from his business solution analyst/friend Corina . Social history: The patient stated that he was born and raised in [facility]. He stated that she was raised by his mother and stepfather. 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 The patient admitted to a history of alcohol abuse but that he has been sober for 40 years. The patient stated that he would like to return home upon discharge. SW engaged in active listening and provided supportive counseling during the interview to address patient's depressive symptoms related to his decline in functioning. SW will continue to address issues of loss related to recent hospitalization. SW will encourage compliance with rehab goals. SW will be available as needed.
--- NOTE | 2016-08-25 15:52 | NUR ---
REHAB TEAM CONFERENCE MEETING 08/25/16
[2016-08-25] MEDS: LEVOFLOXACIN 750MG/D5W 750 MG in PREMIXED 1 EACH IV SCH (16:41)
[2016-08-25] MEDS: RIVAROXABAN 10 MG TABLET PO SCH (17:02)
[2016-08-25 20:27] VITALS: BP 114/52
[2016-08-25] MEDS: TRAZODONE 50 MG TABLET PO SCH (20:31)
[2016-08-25] MEDS: TAMSULOSIN HCL 0.4 MG CAP.SR.24H PO SCH (20:31)
[2016-08-25] MEDS: ATORVASTATIN 10 MG TABLET PO SCH (20:31)
[2016-08-25] MEDS: MIRTAZAPINE 15 MG TABLET PO SCH (20:31)
[2016-08-26] MEDS: OXYCODONE HCL 5 MG TABLET PO PRN ×3 (00:56→09:06)
[2016-08-26] MEDS: PANTOPRAZOLE SODIUM 40 MG TABLET.DR PO SCH (06:08)
--- NOTE | 2016-08-26 06:52 | NUR ---
Slept on and off throughout the night. Had some c/o pain and medication was administered with relief. Patient continues on O2 at 2 LPM via N/C but has no signs of SOB or respiratory distress. Patient has delgado catheter and its patent . Continues on 800ml fluid restriction. Maintained clean and dry throughout the night, call light within reach, all needs attended to.
[2016-08-26] MEDS: BLOOD SUGAR DIAGNOSTIC 1 EACH STRIP VI SCH ×4 (07:12→20:34)
--- NOTE | 2016-08-26 07:16 | NUR ---
Received patient from shift supervisor rn, patient resting comfortably in bed, no signs of acute distress noted. VS WNL. Patient has complaints of pain, 09/30. OxyIR PO was given at 0615 per shift supervisor rn, will reevaluate pain level and manage pain as appropriate per orders. No other verbalized needs at this time, safety and fall precautions maintained.
[2016-08-26 08:00] VITALS: BP 137/55
[2016-08-26] MEDS: REPAGLINIDE 1 MG TABLET PO SCH ×3 (09:05→16:53)
[2016-08-26] MEDS: AMLODIPINE 10 MG TABLET PO SCH (09:05)
[2016-08-26] MEDS: RAMIPRIL 5 MG CAPSULE PO SCH (09:05)
[2016-08-26] MEDS: GABAPENTIN 300 MG CAPSULE PO SCH ×3 (09:05→17:15)
[2016-08-26] MEDS: FLUOXETINE HCL 20 MG CAPSULE PO SCH ×2 (09:06→16:54)
[2016-08-26] MEDS: MORPHINE SULFATE SR 15 MG TABLET.SA PO SCH ×2 (09:06→20:29)
[2016-08-26] MEDS: ASPIRIN 81 MG TAB.CHEW PO SCH (09:06)
[2016-08-26] MEDS: INSULIN DETEMIR 300 UNIT/3 ML CARTRIDGE SQ SCH (09:24)
[2016-08-26] MEDS: TIMOLOL MALEATE 0.5% OPHT DROP 5 ML BOTTLE LEFTEYE SCH ×2 (09:25→20:27)
[2016-08-26] MEDS: BRIMONIDINE 0.2% OPHT DROP 10 ML BOTTLE LEFTEYE SCH ×2 (09:25→20:27)
[2016-08-26] MEDS: INSULIN REGULAR, HUMAN 300 UNIT/3 ML VIAL SQ PRN (16:59)
[2016-08-26] MEDS: RIVAROXABAN 10 MG TABLET PO SCH (17:15)
[2016-08-26] MEDS: LEVOFLOXACIN 750MG/D5W 750 MG in PREMIXED 1 EACH IV SCH (17:15)
[2016-08-26] MEDS: ATORVASTATIN 10 MG TABLET PO SCH (20:28)
[2016-08-26] MEDS: MIRTAZAPINE 15 MG TABLET PO SCH (20:28)
[2016-08-26] MEDS: TRAZODONE 50 MG TABLET PO SCH (20:28)
[2016-08-26] MEDS: TAMSULOSIN HCL 0.4 MG CAP.SR.24H PO SCH (20:28)
[2016-08-26 20:52] VITALS: BP 107/46
[2016-08-27] MEDS: OXYCODONE HCL 5 MG TABLET PO PRN ×3 (03:17→15:59)
[2016-08-27] MEDS ORDERED: OXYCODONE HCL 5 MG TABLET ONE (03:28)
[2016-08-27] MEDS: PANTOPRAZOLE SODIUM 40 MG TABLET.DR PO SCH (06:49)
[2016-08-27] MEDS: BLOOD SUGAR DIAGNOSTIC 1 EACH STRIP VI SCH ×4 (06:51→21:27)
[2016-08-27] MEDS: INSULIN REGULAR, HUMAN 300 UNIT/3 ML VIAL SQ PRN ×2 (07:56→12:03)
[2016-08-27] MEDS: REPAGLINIDE 1 MG TABLET PO SCH ×3 (08:00→17:01)
[2016-08-27 08:20] VITALS: BP 159/66
[2016-08-27] MEDS: BRIMONIDINE 0.2% OPHT DROP 10 ML BOTTLE LEFTEYE SCH ×2 (08:42→21:27)
[2016-08-27] MEDS: TIMOLOL MALEATE 0.5% OPHT DROP 5 ML BOTTLE LEFTEYE SCH ×2 (08:43→21:27)
[2016-08-27] MEDS: RAMIPRIL 5 MG CAPSULE PO SCH (08:43)
[2016-08-27] MEDS: GABAPENTIN 300 MG CAPSULE PO SCH ×3 (08:43→17:02)
[2016-08-27] MEDS: MORPHINE SULFATE SR 15 MG TABLET.SA PO SCH ×2 (08:44→21:26)
[2016-08-27] MEDS: FLUOXETINE HCL 20 MG CAPSULE PO SCH ×2 (08:44→17:02)
[2016-08-27] MEDS: ASPIRIN 81 MG TAB.CHEW PO SCH (08:45)
[2016-08-27] MEDS: AMLODIPINE 10 MG TABLET PO SCH (08:45)
[2016-08-27] MEDS: INSULIN DETEMIR 300 UNIT/3 ML CARTRIDGE SQ SCH (09:05)
--- NOTE | 2016-08-27 09:25 | NUR ---
RECEIVED PATIENT AWAKE IN BED. ALERT AND ORIENTED X4. NO S/S OF DISTRESS. WITH PAIN AT OVER LEFT HIP RATED 7/10. ROUTINE PAIN MEDICATIONS GIVEN. IFC INTACT DRAINING WELL TO YELLOW COLORED URINE. IV ACCESS OVER R HAND, LEAKING REMOVED IV ACCESS. PRESSURE DRESSING APPLIED. INSTRUCTED PATIENT ABOUT 800ML FLUID RESTRICTION PER DAY.
--- NOTE | 2016-08-27 12:00 | NUR ---
COMPLAINED OF PAIN RATED 9/10 OVER LEFT HIP AREA. PRN MEDICATIONS GIVEN
[2016-08-27] MEDS: BISACODYL 5 MG TABLET.DR PO PRN (15:59)
--- NOTE | 2016-08-27 16:01 | NUR ---
BM 2 days ago. Dulcolax PRN PO given. Complained of Left Hip pain rated as 9/10. PRN OXIR medications given
--- NOTE | 2016-08-27 16:31 | NUR ---
IV re started over left arm. Patent with back flow.
[2016-08-27] MEDS: LEVOFLOXACIN 750MG/D5W 750 MG in PREMIXED 1 EACH IV SCH (17:01)
[2016-08-27] MEDS: RIVAROXABAN 10 MG TABLET PO SCH (17:08)
--- NOTE | 2016-08-27 17:46 | NUR ---
Patient resting in bed, with decreased pain rated as 5/10. Consumed dinner 100%.
--- NOTE | 2016-08-27 17:56 | NUR ---
Informed Dr. Borrego for possible ortho consult and said to follow up with disability case manager because ortho of patient who conducted the surgery has no privilege in [place]. Will follow up with disability case manager Addendum: 08/27/16 at 1800 by JIL RIBEIRO RN documentation for wrong patient, documentation for Magaly Hernandez
[2016-08-27 19:00] VITALS: BP 132/52
[2016-08-27] MEDS: ATORVASTATIN 10 MG TABLET PO SCH (21:24)
[2016-08-27] MEDS: TAMSULOSIN HCL 0.4 MG CAP.SR.24H PO SCH (21:24)
[2016-08-27] MEDS: TRAZODONE 50 MG TABLET PO SCH (21:24)
[2016-08-27] MEDS: MIRTAZAPINE 15 MG TABLET PO SCH (21:25)
[2016-08-28] MEDS: BLOOD SUGAR DIAGNOSTIC 1 EACH STRIP VI SCH ×4 (07:03→20:46)
[2016-08-28] MEDS: PANTOPRAZOLE SODIUM 40 MG TABLET.DR PO SCH (07:03)
--- NOTE | 2016-08-28 07:23 | NUR ---
Patient received from shift production supervisor, resting comfortably in bed, no signs of acute distress noted. VS WNL, pain complaints 09/30. MS contin to be given at 0900, will continue to assess and give as per ordered. No other verbalized needs at this time. Fall and safety precautions maintained. Call light within reach. Addendum: 08/29/16 at 1134 by PARRIS CHOE RN PT. UP WITH O.T. THIS AM AND TOLERATING WELL. SITTING UP IN CHAIR SINCE THERAPY. ACTIVE INVOLVEMENT IN CARE PLAN. GOOD PAIN CONTROL. BP 100/52 - WILL PLACE CALL FOR PARAMETERS FOR BP MEDS.
[2016-08-28 07:42] LABS: ALANINE AMINOTRANSFERASE 23 U/L (16-63); ALKALINE PHOSPHATASE 108 U/L (50-136); ASPARTATE AMINOTRANSFERASE 19 U/L (15-37); BILIRUBIN,TOTAL 0.6 mg/dL (0.2-1.0); CARBON DIOXIDE 28 mmol/L (21-32); CHLORIDE 94 mmol/L (98-107); CREATININE 1.1 mg/dL (0.6-1.3); GLUCOSE 118 mg/dL (74-106); MAGNESIUM 2.1 mg/dL (1.8-2.4); PHOSPHOROUS 3.7 mg/dL (2.5-4.9); POTASSIUM 4.4 mmol/L (3.5-5.1); TOTAL PROTEIN, SERUM 5.9 g/dL (6.4-8.2); UREA NITROGEN, BLOOD 21 mg/dL (7-18)
[2016-08-28 07:50] LABS: EOSINOPHILS # (AUTO) 0.2 K/uL (0.0-0.7); EOSINOPHILS % (AUTO) 1.7 % (0.0-7.0); HEMOGLOBIN 10.6 G/DL (14.0-18.0); LYMPHOCYTES # (AUTO) 0.9 K/UL (0.8-4.8); LYMPHOCYTES % (AUTO) 6.7 % (20.5-51.5); MEAN CORPUSCULAR HEMOGLOBIN 27.8 UUG (27.0-31.0); MEAN CORPUSCULAR HGB CONC 33 g/dL (32.0-37.0); MEAN CORPUSCULAR VOLUME 83.7 FL (82.0-92.0); MONOCYTES # (AUTO) 0.9 K/UL (0.1-1.30); MONOCYTES % (AUTO) 6.2 % (0.0-11.0); NEUTROPHILS % (AUTO) 85.4 % (38.5-71.5)
[2016-08-28 08:07] LABS: HEMATOCRIT 31.7 % (40-50); PLATELET COUNT (AUTO) 373 K/UL (150-450); RED BLOOD CELL COUNT(AUTO) 3.79 MIL/UL (4.7-6.1)
[2016-08-28 08:23] VITALS: BP 120/75
[2016-08-28] MEDS: AMLODIPINE 10 MG TABLET PO SCH (08:55)
[2016-08-28] MEDS: REPAGLINIDE 1 MG TABLET PO SCH ×3 (08:55→17:33)
[2016-08-28] MEDS: MORPHINE SULFATE SR 15 MG TABLET.SA PO SCH ×2 (08:56→20:36)
[2016-08-28] MEDS: GABAPENTIN 300 MG CAPSULE PO SCH ×3 (08:57→17:33)
[2016-08-28] MEDS: ASPIRIN 81 MG TAB.CHEW PO SCH (08:57)
[2016-08-28] MEDS: FLUOXETINE HCL 20 MG CAPSULE PO SCH ×2 (08:58→17:33)
[2016-08-28] MEDS: BRIMONIDINE 0.2% OPHT DROP 10 ML BOTTLE LEFTEYE SCH ×2 (08:59→20:37)
[2016-08-28] MEDS: TIMOLOL MALEATE 0.5% OPHT DROP 5 ML BOTTLE LEFTEYE SCH ×2 (10:18→20:37)
[2016-08-28] MEDS: RAMIPRIL 5 MG CAPSULE PO SCH (10:19)
[2016-08-28] MEDS: INSULIN DETEMIR 300 UNIT/3 ML CARTRIDGE SQ SCH (10:19)
[2016-08-28] MEDS: MAGNESIUM HYDROXIDE 30 ML LIQUID UDC PO PRN (14:55)
[2016-08-28] MEDS: LEVOFLOXACIN 750MG/D5W 750 MG in PREMIXED 1 EACH IV SCH (17:00)
[2016-08-28] MEDS: INSULIN REGULAR, HUMAN 300 UNIT/3 ML VIAL SQ PRN (17:34)
[2016-08-28] MEDS: RIVAROXABAN 10 MG TABLET PO SCH (18:12)
[2016-08-28] MEDS: TRAZODONE 50 MG TABLET PO SCH (20:36)
[2016-08-28] MEDS: ATORVASTATIN 10 MG TABLET PO SCH (20:36)
[2016-08-28] MEDS: MIRTAZAPINE 15 MG TABLET PO SCH (20:36)
[2016-08-28] MEDS: TAMSULOSIN HCL 0.4 MG CAP.SR.24H PO SCH (20:36)
[2016-08-28] MEDS: INSULIN REGULAR, HUMAN 300 UNITS/3 ML VIAL SQ PRN (20:49)
[2016-08-28] MEDS: BISACODYL 5 MG TABLET.DR PO PRN (20:51)
[2016-08-28 23:31] VITALS: BP 110/53
[2016-08-29] MEDS: OXYCODONE HCL 5 MG TABLET PO PRN ×3 (04:34→18:37)
[2016-08-29] MEDS: PANTOPRAZOLE SODIUM 40 MG TABLET.DR PO SCH (06:51)
[2016-08-29] MEDS: BLOOD SUGAR DIAGNOSTIC 1 EACH STRIP VI SCH ×4 (06:51→20:18)
[2016-08-29] MEDS: ASPIRIN 81 MG TAB.CHEW PO SCH (09:25)
[2016-08-29] MEDS: GABAPENTIN 300 MG CAPSULE PO SCH ×3 (09:25→17:13)
[2016-08-29] MEDS: REPAGLINIDE 1 MG TABLET PO SCH ×3 (09:26→17:13)
[2016-08-29] MEDS: MORPHINE SULFATE SR 15 MG TABLET.SA PO SCH ×2 (09:26→20:17)
[2016-08-29] MEDS: FLUOXETINE HCL 20 MG CAPSULE PO SCH ×2 (09:26→17:13)
[2016-08-29] MEDS: INSULIN DETEMIR 300 UNIT/3 ML CARTRIDGE SQ SCH (09:32)
[2016-08-29] MEDS: BRIMONIDINE 0.2% OPHT DROP 10 ML BOTTLE LEFTEYE SCH ×2 (09:33→20:18)
[2016-08-29] MEDS: TIMOLOL MALEATE 0.5% OPHT DROP 5 ML BOTTLE LEFTEYE SCH ×2 (09:34→20:18)
[2016-08-29] MEDS: AMLODIPINE 10 MG TABLET PO SCH (09:36)
[2016-08-29 10:39] VITALS: BP 152/64
[2016-08-29 11:28] VITALS: BP 100/52
[2016-08-29] MEDS: INSULIN REGULAR, HUMAN 300 UNIT/3 ML VIAL SQ PRN (12:16)
[2016-08-29] MEDS: Z GUARD REMEDY PASTE 57 GM TUBE TOP PRN (13:24)
[2016-08-29] MEDS: RAMIPRIL 5 MG CAPSULE PO SCH (15:07)
[2016-08-29] MEDS: RIVAROXABAN 10 MG TABLET PO SCH (17:14)
--- NOTE | 2016-08-29 18:12 | NUR ---
PT. HAD A DETAILED BED BATH - WITH SPECIAL FOCUS ON FEET AND PERINEAL CARE. OOB WITH P.T. IN AFTERNOON -TOLERATED WELL. FAMILY VISITED. DR KELLY WILL FOLLOW UP WITH SURGEON REGARDING STAPLE REMOVAL PROTOCOL PER DISCUSSION. ORDOÑEZ CATHETER URINE COLLECTION PER ORDERS FROM [facility], N.P. NO ACUTE DISTRESS NOTED.
[2016-08-29 18:16] LABS: *BILIRUBIN,URIN NEGATIVE (NEGATIVE); *BLOOD, URINE 3+ (NEGATIVE); *CLARITY,URINE SLIGHTLY CLOUDY (CLEAR); *COLOR,URINE YELLOW (YELLOW); *KETONES,URINE NEGATIVE (NEGATIVE); *PROTEIN,URINE 2+ (NEGATIVE); LEUKOCYTE ESTERASE ,URINE 3+ (NEGATIVE); NITRITE, URINE NEGATIVE (NEGATIVE); UGLUCOSE NEGATIVE (NEGATIVE)
[2016-08-29 18:22] LABS: BACTERIA,URINE RARE /HPF (NONE SEEN); SQUAMOUS EPITHELIAL CELL,UR FEW /HPF (NONE SEEN); YEAST,URINE MODERATE /HPF (NONE SEEN)
[2016-08-29 20:14] LABS: BASOPHILS % (AUTO) 0.3 % (0.0-2.0); EOSINOPHILS # (AUTO) 0.3 K/uL (0.0-0.7); EOSINOPHILS % (AUTO) 2.2 % (0.0-7.0); HEMATOCRIT 28.4 % (40-50); HEMOGLOBIN 9.4 G/DL (14.0-18.0); LYMPHOCYTES % (AUTO) 6.7 % (20.5-51.5); MEAN CORPUSCULAR HGB CONC 33 g/dL (32.0-37.0); MEAN CORPUSCULAR VOLUME 81.8 FL (82.0-92.0); MONOCYTES # (AUTO) 1.2 K/UL (0.1-1.30); MONOCYTES % (AUTO) 8.3 % (0.0-11.0); NEUTROPHILS # (AUTO) 12.5 K/UL (1.8-8.9); NEUTROPHILS % (AUTO) 82.5 % (38.5-71.5); PLATELET COUNT (AUTO) 378 K/UL (150-450); RED BLOOD CELL COUNT(AUTO) 3.47 MIL/UL (4.7-6.1)
[2016-08-29] MEDS: MIRTAZAPINE 15 MG TABLET PO SCH (20:17)
[2016-08-29] MEDS: TRAZODONE 50 MG TABLET PO SCH (20:17)
[2016-08-29] MEDS: TAMSULOSIN HCL 0.4 MG CAP.SR.24H PO SCH (20:17)
[2016-08-29] MEDS: ATORVASTATIN 10 MG TABLET PO SCH (20:17)
--- NOTE | 2016-08-30 03:00 | NUR ---
Patient noted to be restless and diaphoretic, BS check was done at 0208 and the patient was 31. Patient was awake and verbally saying certain words. Juice was administered and BS was rechecked at 022 with a reading of 42. Patient was given crackers and vanilla pudding and BS was rechecked again at 230 with a reading of 61. Patient is more alert now and speaking clearly. BS rechecked at 0238 and results were 63. Last sugar check done at 030 with reading at 113. Addendum: 08/30/16 at 0306 by SUZETTE OCHOA RN Will continue to monitor.
--- NOTE | 2016-08-30 05:15 | NUR ---
Started new IV site on R hand # 22 due to new orders for Zosyn IV due to UTI
[2016-08-30] MEDS: OXYCODONE HCL 5 MG TABLET PO PRN ×2 (05:21→16:19)
[2016-08-30] MEDS ORDERED: PIPERACILLIN/TAZOBACTAM/D5W 50 ML IV ONE (05:54)
[2016-08-30] MEDS: PIPERACILLIN/TAZOBACTAM/D5W 3.375 G in PREMIXED 1 EACH IV SCH ×3 (05:58→22:49)
[2016-08-30] MEDS: PANTOPRAZOLE SODIUM 40 MG TABLET.DR PO SCH (06:04)
[2016-08-30] MEDS: BLOOD SUGAR DIAGNOSTIC 1 EACH STRIP VI SCH ×4 (06:46→21:14)
--- NOTE | 2016-08-30 07:05 | NUR ---
Paged Dr Calero stock preparation operator for [facility] to report BS levels at 427.
[2016-08-30 07:40] VITALS: BP 141/56
[2016-08-30 08:27] VITALS: BP 162/62
[2016-08-30] MEDS: REPAGLINIDE 1 MG TABLET PO SCH ×3 (08:45→16:57)
[2016-08-30] MEDS: FLUCONAZOLE 100 MG TABLET PO SCH (08:45)
[2016-08-30] MEDS: FLUOXETINE HCL 20 MG CAPSULE PO SCH ×2 (08:45→16:57)
[2016-08-30] MEDS: GABAPENTIN 300 MG CAPSULE PO SCH ×3 (08:45→16:57)
[2016-08-30] MEDS: ASPIRIN 81 MG TAB.CHEW PO SCH (08:45)
[2016-08-30] MEDS: AMLODIPINE 10 MG TABLET PO SCH (08:46)
[2016-08-30] MEDS: RAMIPRIL 5 MG CAPSULE PO SCH (08:46)
[2016-08-30] MEDS: MORPHINE SULFATE SR 15 MG TABLET.SA PO SCH ×2 (08:47→21:17)
[2016-08-30] MEDS: BRIMONIDINE 0.2% OPHT DROP 10 ML BOTTLE LEFTEYE SCH ×2 (08:51→21:18)
[2016-08-30] MEDS: TIMOLOL MALEATE 0.5% OPHT DROP 5 ML BOTTLE LEFTEYE SCH ×2 (08:52→21:20)
[2016-08-30] MEDS: INSULIN DETEMIR 300 UNIT/3 ML CARTRIDGE SQ SCH (09:01)
[2016-08-30] MEDS: INSULIN REGULAR, HUMAN 300 UNIT/3 ML VIAL SQ PRN ×2 (09:03→12:11)
--- NOTE | 2016-08-30 13:00 | NUR ---
Notified Dr. Calero regarding episodes of hyperglycemia 427 and 430 at before breakfast and before lunch respectively. With no new order at this time. Patient remains alert, verbally responsive, coherent any in any form of acute distress. He denies any pain or discomfort. Due meds and insulin sliding scale administered as ordered.
[2016-08-30 14:17] LABS: *BILIRUBIN,URIN NEGATIVE (NEGATIVE); *BLOOD, URINE Trace-intact (NEGATIVE); *CLARITY,URINE CLEAR (CLEAR); *COLOR,URINE YELLOW (YELLOW); *KETONES,URINE NEGATIVE (NEGATIVE); *PROTEIN,URINE 1+ (NEGATIVE); *UROBILINOGEN,URINE 0.2 E.U./dl (NORMAL); LEUKOCYTE ESTERASE ,URINE NEGATIVE (NEGATIVE); NITRITE, URINE NEGATIVE (NEGATIVE); PH,URINE 5.5 (5.0-8.0)
[2016-08-30 14:18] LABS: UGLUCOSE 3+ (NEGATIVE)
[2016-08-30 14:24] LABS: BACTERIA,URINE FEW /HPF (NONE SEEN); SQUAMOUS EPITHELIAL CELL,UR FEW /HPF (NONE SEEN); YEAST,URINE MANY /HPF (NONE SEEN)
[2016-08-30] MEDS ORDERED: INSULIN DETEMIR 300 UNIT/3 ML CARTRIDGE SQ SCH (17:00)
[2016-08-30] MEDS: RIVAROXABAN 10 MG TABLET PO SCH (17:09)
--- NOTE | 2016-08-30 18:00 | NUR ---
Notified Dr. Calero regarding BS 60 prior dinner and which went to 100 after giving juice and dinner. MD ordered to hold Levemir 25 units at this time. Patient remains alert, with no complain of any discomfort.
--- NOTE | 2016-08-30 20:30 | NUR ---
NSG: Received patient from day shift, patient resting comfortably in bed, no signs of acute distress noted. VS WNL. Patient has complaints of meds. No other verbalized needs at this time, safety and fall precautions maintained.
--- NOTE | 2016-08-30 21:10 | NUR ---
NSG: PATIENT BLOOD SUGAR 47 MG/DL. D50 IV GIVEN PROTOCOL. Dr price, juan made aware was in unit. stated ok. no new order received. hs snack given. patient is a/o x3.denies any pain or dizziness.continue monitoring for low blood sugar and safety.
[2016-08-30] MEDS: ATORVASTATIN 10 MG TABLET PO SCH (21:17)
[2016-08-30] MEDS: TAMSULOSIN HCL 0.4 MG CAP.SR.24H PO SCH (21:17)
[2016-08-30] MEDS: TRAZODONE 50 MG TABLET PO SCH (21:17)
[2016-08-30] MEDS: MIRTAZAPINE 15 MG TABLET PO SCH (21:17)
[2016-08-30 21:47] VITALS: BP 118/53
[2016-08-31] MEDS: OXYCODONE HCL 5 MG TABLET PO PRN ×2 (03:37→13:15)
[2016-08-31] MEDS: PIPERACILLIN/TAZOBACTAM/D5W 3.375 G in PREMIXED 1 EACH IV SCH ×3 (05:13→22:36)
[2016-08-31] MEDS: PANTOPRAZOLE SODIUM 40 MG TABLET.DR PO SCH (06:18)
[2016-08-31 06:46] LABS: EOSINOPHILS # (AUTO) 0.7 K/uL (0.0-0.7); HEMOGLOBIN 10.1 G/DL (14.0-18.0); LYMPHOCYTES # (AUTO) 1.2 K/UL (0.8-4.8); LYMPHOCYTES % (AUTO) 8.5 % (20.5-51.5); MEAN CORPUSCULAR HEMOGLOBIN 28.1 UUG (27.0-31.0); MEAN CORPUSCULAR HGB CONC 34 g/dL (32.0-37.0); MEAN CORPUSCULAR VOLUME 83.4 FL (82.0-92.0); MONOCYTES % (AUTO) 7.3 % (0.0-11.0); NEUTROPHILS # (AUTO) 11.4 K/UL (1.8-8.9); NEUTROPHILS % (AUTO) 79.2 % (38.5-71.5); PLATELET COUNT (AUTO) 353 K/UL (150-450); WHITE BLOOD COUNT (AUTO) 14.3 K/UL (4.0-11.2)
[2016-08-31 06:56] LABS: ALANINE AMINOTRANSFERASE 14 U/L (16-63); ALKALINE PHOSPHATASE 131 U/L (50-136); ASPARTATE AMINOTRANSFERASE 16 U/L (15-37); BILIRUBIN,TOTAL 0.6 mg/dL (0.2-1.0); CARBON DIOXIDE 26 mmol/L (21-32); CHLORIDE 97 mmol/L (98-107); CREATININE 1.2 mg/dL (0.6-1.3); MAGNESIUM 2.3 mg/dL (1.8-2.4); PHOSPHOROUS 4.4 mg/dL (2.5-4.9); POTASSIUM 5.2 mmol/L (3.5-5.1); TOTAL PROTEIN, SERUM 6.1 g/dL (6.4-8.2); UREA NITROGEN, BLOOD 22 mg/dL (7-18)
[2016-08-31] MEDS: BLOOD SUGAR DIAGNOSTIC 1 EACH STRIP VI SCH ×4 (06:57→20:28)
[2016-08-31 07:01] LABS: GLUCOSE 48 mg/dL (74-106)
--- NOTE | 2016-08-31 07:01 | NUR ---
BS 151 MD/DL, PATIENT A/O X3,NO C/O PAIN OR DISCOMFORT THIS TIME. 8 OZ APPLE JUICE GIVEN. CHARGE NURSE AWARE.GOING TO RECHECK BLOOD SUGAR IN 15 MIN. Addendum: 08/31/16 at 0704 by SARAH GONSALES LVN BLOOD SUGAR 51 MG/DL NOT 151 MG/DL.
--- NOTE | 2016-08-31 07:16 | NUR ---
nsg: recheck blood sugar after 8 oz given now bs: 109 mg/dl. patient asymptomatic.no c/o dizziness.
--- NOTE | 2016-08-31 08:00 | NUR ---
Received patient awake, alert, verbally responsive, coherent, afebrile, not in any form of acute distress. He denies any pain or discomfort at this time. Call light placed within reach. Assisted to his needs.
[2016-08-31] MEDS: REPAGLINIDE 1 MG TABLET PO SCH ×3 (08:46→17:19)
[2016-08-31] MEDS: BRIMONIDINE 0.2% OPHT DROP 10 ML BOTTLE LEFTEYE SCH ×2 (08:47→20:27)
[2016-08-31] MEDS: GABAPENTIN 300 MG CAPSULE PO SCH ×3 (08:48→17:19)
[2016-08-31] MEDS: TIMOLOL MALEATE 0.5% OPHT DROP 5 ML BOTTLE LEFTEYE SCH ×2 (08:48→20:27)
[2016-08-31] MEDS: FLUCONAZOLE 100 MG TABLET PO SCH (08:48)
[2016-08-31] MEDS: FLUOXETINE HCL 20 MG CAPSULE PO SCH ×2 (08:49→17:19)
[2016-08-31] MEDS: ASPIRIN 81 MG TAB.CHEW PO SCH (08:49)
[2016-08-31] MEDS: RAMIPRIL 5 MG CAPSULE PO SCH (08:49)
[2016-08-31] MEDS: MORPHINE SULFATE SR 15 MG TABLET.SA PO SCH ×2 (08:50→20:26)
[2016-08-31] MEDS: AMLODIPINE 10 MG TABLET PO SCH (08:50)
--- NOTE | 2016-08-31 10:04 | NUR ---
Notified Dr. Calero regarding episode of hypoglycemia before 7am per shift boss BS 48, [address] Calero ordered to discontinue current levemir and change to Levemir 20 units subQ BID to start now. Patient made aware.
[2016-08-31] MEDS: INSULIN DETEMIR 300 UNIT/3 ML CARTRIDGE SQ SCH ×2 (10:41→17:24)
[2016-08-31] MEDS: INSULIN REGULAR, HUMAN 300 UNIT/3 ML VIAL SQ PRN ×2 (12:47→17:23)
[2016-08-31] MEDS: RIVAROXABAN 10 MG TABLET PO SCH (17:25)
--- NOTE | 2016-08-31 18:12 | NUR ---
Followed up with Tressa from [facility] microbiology department regarding urine culture and sputum culture ordered 08/29/16 but per her no specimen processed from the laboratory despite specimen having been sent to the laboratory on that same day. Since nothing processed, collected again urine specimen and sent to the laboratory. Sputum specimen still to be collected, patient aware and stated I don't have cough and no sputum to cough out at this time.
--- NOTE | 2016-08-31 18:30 | NUR ---
Followed up with Dinesh from radiology regarding result chest x-ray done 08/30/16 since no report showing just image and so he faxed result. Result placed placed in the patient's chart with Impression: stable cardiomegaly without acute cardiopulmonary abnormality.
[2016-08-31] MEDS: TRAZODONE 50 MG TABLET PO SCH (20:26)
[2016-08-31] MEDS: MIRTAZAPINE 15 MG TABLET PO SCH (20:26)
[2016-08-31] MEDS: TAMSULOSIN HCL 0.4 MG CAP.SR.24H PO SCH (20:26)
[2016-08-31] MEDS: ATORVASTATIN 10 MG TABLET PO SCH (20:28)
[2016-08-31 22:00] VITALS: BP 128/70
[2016-08-31] MEDS: INSULIN REGULAR, HUMAN 300 UNITS/3 ML VIAL SQ PRN (22:36)
[2016-08-31] MEDS ORDERED: SODIUM POLYSTYRENE SULFONATE 15 G/60 ML LIQUID UDC PO ONE (23:00)
--- NOTE | 2016-09-01 01:54 | NUR ---
RN NOTES: PATIENT'S BLOOD SUGAR WAS 31 MG/DL AT 01:00. D 50% IV IS GIVEN PRESCRIBED . APPLE JUICE AND APPLE SAUCE ARE GIVEN TO PATIENT. BLOOD SUGAR CHECKED AFTER 15 MIN AND IT WENT UP TO 168 MG/DL. PATIENT IS ALERT, ORIENTED TIMES 3. THEN BLOOD SUGAR CHECKED AFTER 15 MIN AND TI WAS 134 MG /DL.PATIENT IS ALERT AND ORIENTED. IN STABLE CONDITION. ALLISON IS CONTACTED AND NOTIFIED REGARDING THE BLOOD SUGAR READINGS AND HE SAID "NO INTERVENTIONS REQUIRED AT THIS TIME" . WILL CONTINUE TO MONITOR FOR ANY CHANGES ON PATIENT'S CONDITION.
[2016-09-01] MEDS: PIPERACILLIN/TAZOBACTAM/D5W 3.375 G in PREMIXED 1 EACH IV SCH ×3 (06:47→21:21)
[2016-09-01] MEDS: REPAGLINIDE 1 MG TABLET PO SCH ×3 (08:00→18:11)
[2016-09-01] MEDS: RAMIPRIL 5 MG CAPSULE PO SCH (09:00)
[2016-09-01] MEDS: INSULIN DETEMIR 300 UNIT/3 ML CARTRIDGE SQ SCH ×2 (09:00→20:35)
[2016-09-01] MEDS: MORPHINE SULFATE SR 15 MG TABLET.SA PO SCH ×2 (09:31→20:22)
[2016-09-01] MEDS: FLUCONAZOLE 100 MG TABLET PO SCH (09:32)
[2016-09-01] MEDS: GABAPENTIN 300 MG CAPSULE PO SCH ×3 (09:32→18:11)
[2016-09-01] MEDS: PANTOPRAZOLE SODIUM 40 MG TABLET.DR PO SCH (09:32)
[2016-09-01] MEDS: AMLODIPINE 10 MG TABLET PO SCH (09:33)
[2016-09-01] MEDS: BISACODYL 5 MG TABLET.DR PO PRN (09:33)
[2016-09-01] MEDS: FLUOXETINE HCL 20 MG CAPSULE PO SCH ×2 (09:33→18:12)
[2016-09-01] MEDS: ASPIRIN 81 MG TAB.CHEW PO SCH (09:34)
[2016-09-01 09:35] VITALS: BP 144/72
[2016-09-01] MEDS: BRIMONIDINE 0.2% OPHT DROP 10 ML BOTTLE LEFTEYE SCH ×2 (09:38→20:23)
[2016-09-01] MEDS: TIMOLOL MALEATE 0.5% OPHT DROP 5 ML BOTTLE LEFTEYE SCH ×2 (09:38→21:21)
[2016-09-01] MEDS: BLOOD SUGAR DIAGNOSTIC 1 EACH STRIP VI SCH ×4 (10:14→20:34)
--- NOTE | 2016-09-01 12:00 | NUR ---
DAILY NOTE F/C REMOVED ORDERED. INTACT WITH NO C/O DISTRESS 450ML CL YELLOW URINE NOTED IN BAG.
--- NOTE | 2016-09-01 15:18 | NUR ---
Team Conference Meeting 09/01/16
[2016-09-01] MEDS: TAMSULOSIN HCL 0.4 MG CAP.SR.24H PO SCH ×2 (15:47→20:22)
[2016-09-01] MEDS: OXYCODONE HCL 5 MG TABLET PO PRN (16:06)
--- NOTE | 2016-09-01 16:30 | NUR ---
DAILY NOTE ACCU CHECK DONE [id number] REFUSES ANY COVERAGE AT THIS TIME
[2016-09-01] MEDS: RIVAROXABAN 10 MG TABLET PO SCH (18:12)
[2016-09-01] MEDS: ATORVASTATIN 10 MG TABLET PO SCH (20:21)
[2016-09-01] MEDS: MIRTAZAPINE 15 MG TABLET PO SCH (20:21)
[2016-09-01] MEDS: TRAZODONE 50 MG TABLET PO SCH (20:22)
[2016-09-01] MEDS: MAGNESIUM HYDROXIDE 30 ML LIQUID UDC PO PRN (20:44)
[2016-09-02] MEDS: OXYCODONE HCL 5 MG TABLET PO PRN ×3 (04:28→16:10)
[2016-09-02] MEDS: PANTOPRAZOLE SODIUM 40 MG TABLET.DR PO SCH (05:54)
[2016-09-02] MEDS: PIPERACILLIN/TAZOBACTAM/D5W 3.375 G in PREMIXED 1 EACH IV SCH (05:54)
[2016-09-02] MEDS: BLOOD SUGAR DIAGNOSTIC 1 EACH STRIP VI SCH ×4 (06:05→21:18)
[2016-09-02 07:52] VITALS: BP 158/73
--- NOTE | 2016-09-02 07:53 | NUR ---
PATIENT RECEIVED IN ROOM RESTING IN BED ALERT, AWAKE IN NO ACUTE DISTRESS. RESPIRATIONS EVEN AND UNLABORED. SAFETY MAINTAINED. CALL LIGHT AT REACH.
[2016-09-02] MEDS: INSULIN REGULAR, HUMAN 300 UNIT/3 ML VIAL SQ PRN ×2 (08:18→11:59)
[2016-09-02] MEDS: GABAPENTIN 300 MG CAPSULE PO SCH ×3 (08:20→17:27)
[2016-09-02] MEDS: REPAGLINIDE 1 MG TABLET PO SCH ×3 (08:21→17:27)
[2016-09-02] MEDS: RAMIPRIL 5 MG CAPSULE PO SCH (08:21)
[2016-09-02] MEDS: MORPHINE SULFATE SR 15 MG TABLET.SA PO SCH ×2 (08:21→21:12)
[2016-09-02] MEDS: TAMSULOSIN HCL 0.4 MG CAP.SR.24H PO SCH ×2 (08:22→21:10)
[2016-09-02] MEDS: TIMOLOL MALEATE 0.5% OPHT DROP 5 ML BOTTLE LEFTEYE SCH ×2 (08:22→21:13)
[2016-09-02] MEDS: FLUOXETINE HCL 20 MG CAPSULE PO SCH ×2 (08:22→17:27)
[2016-09-02] MEDS: AMLODIPINE 10 MG TABLET PO SCH (08:22)
[2016-09-02] MEDS: ASPIRIN 81 MG TAB.CHEW PO SCH (08:22)
[2016-09-02] MEDS: BRIMONIDINE 0.2% OPHT DROP 10 ML BOTTLE LEFTEYE SCH ×2 (08:25→21:13)
[2016-09-02] MEDS: INSULIN DETEMIR 300 UNIT/3 ML CARTRIDGE SQ SCH ×2 (08:59→21:18)
[2016-09-02] MEDS: RIVAROXABAN 10 MG TABLET PO SCH (17:32)
--- NOTE | 2016-09-02 18:51 | NUR ---
END OF SHIFT NOTE: PATIENT IN NO ACUTE DISTRESS THROUGHOUT SHIFT. VSS. PAIN MANAGED WITH MEDICATION PRESCRIBED. NO S/S OF HYPER OR HYPOGLYCEMIA NOTED. PARTICIPATED WITH PT AND TOLERATED WELL. NEEDS MET BY STAFF.
[2016-09-02 20:24] VITALS: BP 141/66
[2016-09-02] MEDS: ATORVASTATIN 10 MG TABLET PO SCH (21:10)
[2016-09-02] MEDS: TRAZODONE 50 MG TABLET PO SCH (21:10)
[2016-09-02] MEDS: MIRTAZAPINE 15 MG TABLET PO SCH (21:11)
[2016-09-02] MEDS: INSULIN REGULAR, HUMAN 300 UNITS/3 ML VIAL SQ PRN (22:13)
[2016-09-03] MEDS: OXYCODONE HCL 5 MG TABLET PO PRN ×3 (05:25→14:13)
[2016-09-03] MEDS: PANTOPRAZOLE SODIUM 40 MG TABLET.DR PO SCH (06:39)
[2016-09-03] MEDS: BLOOD SUGAR DIAGNOSTIC 1 EACH STRIP VI SCH ×2 (06:44→12:17)
--- NOTE | 2016-09-03 08:00 | NUR ---
RECEIVED PATIENT AWAKE, ALERT AND ORIENTED X4. FOR POSSIBLE DISCHARGE TODAY. NO S/S OF DISTRESS. BS AT 92. CALL LIGHT WITHIN REACH.
[2016-09-03 08:27] VITALS: BP 152/59
[2016-09-03] MEDS: MORPHINE SULFATE SR 15 MG TABLET.SA PO SCH (08:28)
[2016-09-03] MEDS: REPAGLINIDE 1 MG TABLET PO SCH ×2 (08:32→12:14)
[2016-09-03] MEDS: BRIMONIDINE 0.2% OPHT DROP 10 ML BOTTLE LEFTEYE SCH (08:34)
[2016-09-03] MEDS: FLUOXETINE HCL 20 MG CAPSULE PO SCH (08:34)
[2016-09-03] MEDS: TAMSULOSIN HCL 0.4 MG CAP.SR.24H PO SCH (08:34)
[2016-09-03] MEDS: GABAPENTIN 300 MG CAPSULE PO SCH ×2 (08:35→12:14)
[2016-09-03] MEDS: RAMIPRIL 5 MG CAPSULE PO SCH (08:35)
[2016-09-03 08:36] VITALS: BP 152/59
[2016-09-03] MEDS: AMLODIPINE 10 MG TABLET PO SCH (08:36)
[2016-09-03] MEDS: TIMOLOL MALEATE 0.5% OPHT DROP 5 ML BOTTLE LEFTEYE SCH (09:06)
[2016-09-03] MEDS: INSULIN DETEMIR 300 UNIT/3 ML CARTRIDGE SQ SCH (09:06)
[2016-09-03] MEDS: ASPIRIN 81 MG TAB.CHEW PO SCH (09:06)
[2016-09-03] MEDS: INSULIN REGULAR, HUMAN 300 UNIT/3 ML VIAL SQ PRN (12:16)
--- NOTE | 2016-09-03 13:00 | NUR ---
DRESSING CHANGED. IV ACCESS D/C. INSTRUCTED PATIENT TO AMBULATE WITH ASSISTANCE USING DME. INSTRUCTED TO FOLLOW UP WITH DR MORTON ON August AT 13:00. INSTRUCTED TO TAKE MEDICATIONS PRESCRIBED AN TO MAINTAIN DIABETIC DIET.
--- NOTE | 2016-09-03 14:45 | NUR ---
DISCHARGE TO HOME IN STABLE CONDITION ACCOMPANIED BY MED RESPONSE VIA GURNEY.
== END 2016-09-03 14:45 | disposition home health service (06) | DRG 559 ==
PROVIDERS: ADMIT Physical Medicine & Rehabilitation Pain Medicine; ATTEND Physical Medicine & Rehabilitation Pain Medicine
DX: S72.142D Displaced intertrochanteric fracture of left femur, subsequent encounter for closed fracture with routine healing (principal); N17.0 Acute kidney failure with tubular necrosis; J69.0 Pneumonitis due to inhalation of food and vomit; E87.1 Hypo-osmolality and hyponatremia; E44.0 Moderate protein-calorie malnutrition; I13.0 Hypertensive heart and chronic kidney disease with heart failure and stage 1 through stage 4 chronic kidney disease, or unspecified chronic kidney disease; D68.59 Other primary thrombophilia; B37.49 Other urogenital candidiasis; D62 Acute posthemorrhagic anemia; W19.XXXD Unspecified fall, subsequent encounter; I25.10 Atherosclerotic heart disease of native coronary artery without angina pectoris; Z95.1 Presence of aortocoronary bypass graft; Z85.46 Personal history of malignant neoplasm of prostate; Z90.79 Acquired absence of other genital organ(s); R53.1 Weakness; K21.9 Gastro-esophageal reflux disease without esophagitis; E11.65 Type 2 diabetes mellitus with hyperglycemia; J45.909 Unspecified asthma, uncomplicated; I51.7 Cardiomegaly; F32.9 Major depressive disorder, single episode, unspecified; E66.9 Obesity, unspecified; Z68.26 Body mass index [BMI] 26.0-26.9, adult; N18.9 Chronic kidney disease, unspecified; I50.9 Heart failure, unspecified; E11.22 Type 2 diabetes mellitus with diabetic chronic kidney disease; E11.69 Type 2 diabetes mellitus with other specified complication; I48.0 Paroxysmal atrial fibrillation; Z79.01 Long term (current) use of anticoagulants; Z86.73 Personal history of transient ischemic attack (TIA), and cerebral infarction without residual deficits; Z87.440 Personal history of urinary (tract) infections; R09.89 Other specified symptoms and signs involving the circulatory and respiratory systems; D63.8 Anemia in other chronic diseases classified elsewhere; R33.9 Retention of urine, unspecified; R19.5 Other fecal abnormalities; E87.6 Hypokalemia
CPT/HCPCS: 36415; 71010; 83550; 83605; 83735; 84100; 84153; 84300; 84443; 84550; 85025; 87070; 87086; 87400; 93307; 97110; 97112; 97116; 97161; 97165; 97530; 97535; A4663; C1758; J1815; J1956; J2270; J2543; J3490; J7040; J7050